=== PATIENT | male | born 1965 | race Caucasian/White ===

== ENCOUNTER 2016-06-10 10:12 | Emergency (ER) | payer OTHER ==
[~2016-06-10] VITALS: Ht 167.6 cm; Wt 73.5 kg
[2016-06-10] MEDS ORDERED: LIDOCAINE HCL BUFFERED 1% 20 ML VIAL INJ ONE (10:45)
[2016-06-10] MEDS ORDERED: PERTUSS(ACELL),DIPH,TET VAC/PF 0.5 ML VIAL IM ONE (10:45)
[2016-06-10] MEDS ORDERED: HYDROCODONE/ACETAMINOPHEN 5-325 MG TABLET PO ONE (11:45)
[2016-06-10 13:22] LABS: BASOPHILS % (AUTO) 0.4 % (0.0-2.0); EOSINOPHILS % (AUTO) 1.6 % (1.0-6.0); HEMATOCRIT 44.2 % (41-53); HEMOGLOBIN 14.7 g/dL (13.5-17.5); LYMPHOCYTES # (AUTO) 1.8 K/uL (1.0-4.8); LYMPHOCYTES % (AUTO) 21.8 % (22.0-44.0); MEAN CORPUSCULAR HEMOGLOBIN 29.1 pg (26.0-34.0); MEAN CORPUSCULAR HGB CONC 33.1 G/dL (31.0-37.0); MEAN CORPUSCULAR VOLUME 88 fL (80-100); MONOCYTES # (AUTO) 0.4 K/uL (0.1-1.0); MONOCYTES % (AUTO) 5.1 % (2.0-9.0); NEUTROPHILS # (AUTO) 5.9 K/uL (1.8-7.7); NEUTROPHILS % (AUTO) 71.1 % (40.0-70.0); PLATELET COUNT (AUTO) 239 K/uL (150-450); RED BLOOD CELL COUNT(AUTO) 5.04 MIL/uL (4.50-5.90); RED CELL DISTRIBUTION WIDTH 13.5 % (11.5-14.5); WHITE BLOOD COUNT (AUTO) 8.4 K/uL (4.5-11.0)
[2016-06-10 13:34] LABS: ANION GAP 7 mmol/L (8-16); CALCIUM, TOTAL 9.2 mg/dL (8.8-10.5); CARBON DIOXIDE 32 mmol/L (22-29); CHLORIDE 105 mmol/L (98-107); CREATININE 0.84 mg/dL (0.60-1.30); GLOMERULAR FILTR. RATE CALC > 60 mL/min (>60); POTASSIUM 4.1 mmol/L (3.5-5.1); SODIUM SERUM 144 mmol/L (136-145); UREA NITROGEN, BLOOD 16 mg/dL (7-18)
[2016-06-10 15:04] VITALS: BP 124/75
== END 2016-06-10 15:09 | disposition home or self-care (01) ==
LOC: EMS 10:14
DX: S61.012A Laceration without foreign body of left thumb without damage to nail, initial encounter (principal); W45.8XXA Other foreign body or object entering through skin, initial encounter; Y93.89 Activity, other specified; Y92.89 Other specified places as the place of occurrence of the external cause; Y99.8 Other external cause status
CPT/HCPCS: 12002; 36415; 71010; 73130; 80048; 85025; 90471; 90715; 93005; 96372; 99285; J0690; J3490

== ENCOUNTER 2023-03-25 12:47 | Emergency (ER) | payer OTHER ==
[~2023-03-25] VITALS: Ht 167.6 cm; Wt 73.2 kg
[2023-03-25 12:52] VITALS: TEMP 98.3
[2023-03-25] MEDS ORDERED: PERTUSS(ACELL),DIPH,TET VAC/PF 0.5 ML SYRINGE IM. ONE (15:00)
[2023-03-25] MEDS ORDERED: LIDOCAINE 1% 10 ML VIAL SQ ONE (15:00)
[2023-03-25] MEDS ORDERED: CEPHALEXIN MONOHYDRATE 500 MG CAPSULE PO ONE (15:45)
[2023-03-25] MEDS ORDERED: CEPH-558 PO (16:38)
[2023-03-25 16:50] VITALS: BP 128/81; PULSE 84; RESP 16
== END 2023-03-25 16:52 | disposition home or self-care (01) ==
LOC: EMS 12:47
DX: S61.217A Laceration without foreign body of left little finger without damage to nail, initial encounter (principal); Z88.6 Allergy status to analgesic agent; W31.89XA Contact with other specified machinery, initial encounter; Y93.89 Activity, other specified; Y92.096 Garden or yard of other non-institutional residence as the place of occurrence of the external cause; Y99.8 Other external cause status
CPT/HCPCS: 99284; 73140; 90715; 90471; 96372; J3490; 99283

== ENCOUNTER 2023-04-03 11:18 | Emergency (ER) | payer OTHER ==
[~2023-04-03] VITALS: Ht 167.6 cm; Wt 73.2 kg
[~2023-04-03 11:18] MED LIST: CEPH-558 PO
[2023-04-03 11:22] VITALS: TEMP 98.5
[2023-04-03 12:31] VITALS: BP 141/83; PULSE 70; RESP 18
== END 2023-04-03 12:31 | disposition home or self-care (01) ==
LOC: EMS 11:18
DX: S61.211D Laceration without foreign body of left index finger without damage to nail, subsequent encounter (principal); Z88.6 Allergy status to analgesic agent; Z48.02 Encounter for removal of sutures; X58.XXXD Exposure to other specified factors, subsequent encounter
CPT/HCPCS: 99281; Z7502